=== PATIENT | male | born 1995 | race Caucasian/White ===

== ENCOUNTER 2019-03-14 06:25 | Emergency (ER) | payer OTHER ==
[~2019-03-14] VITALS: Ht 167.6 cm; Wt 52.2 kg
[2019-03-14] MEDS ORDERED: IBUPROFEN 400 MG TABLET ONE (07:29)
[2019-03-14] MEDS ORDERED: IBUPROFEN 400 MG TABLET PO ONE (07:30)
[2019-03-14 08:13] VITALS: BP 107/84
--- NOTE | 2019-03-14 08:14 | NUR ---
Patient discharged to home in stable conditon. Written and verbal after care instructions given. Patient verbalizes understanding of instructions.
== END 2019-03-14 08:14 | disposition home or self-care (01) ==
LOC: ER 06:45
DX: M25.532 Pain in left wrist (principal); F17.200 Nicotine dependence, unspecified, uncomplicated; V29.9XXA Motorcycle rider (driver) (passenger) injured in unspecified traffic accident, initial encounter; Y93.89 Activity, other specified; Y92.89 Other specified places as the place of occurrence of the external cause; Y99.8 Other external cause status
CPT/HCPCS: 73110; A4663